=== PATIENT | female | born 1995 ===

== ENCOUNTER 2017-01-23 08:32 | Emergency (ER) | payer OTHER ==
[2017-01-23 08:39] VITALS: BMI 24.7
[2017-01-23 08:44] VITALS: TEMP 98.4; O2SAT 100
[2017-01-23] MEDS ORDERED: Sodium Chloride 0.9% 1,000 ML IV STA (08:47)
[2017-01-23] MEDS ORDERED: Alum-Mag Hydrox-Simethicone Susp (30 mL) PO STA (08:48)
--- NOTE | 2017-01-23 08:51 | ED PDOC ---
Arrival/HPI - General Chief Complaint: Abdominal Pain Time Seen by Provider: 01/23/17 08:41 Historian: Patient - History of Present Illness Narrative History of Present Illness (Text): 01/23/17 08:45 A 21 year old female, whose past medical history includes gastritis on protonix , presents to the emergency department for epigastric abdominal pain with nausea and vomiting. The patient states this morning when she woke up she was light headed and drank some water, then proceeded with her normal morning routine and went to work. At work the patient states she threw up twice. The patient denies any fever, bloody stools, headaches, or any other complaints at this time. Time/Duration: 1-3 hours Symptom Onset: Sudden Symptom Course: Unchanged Quality: Aching, Pressure Activities at Onset: Light Context: Home, Work Past Medical History - Provider Review Nursing Documentation Reviewed: Yes - Past History Past History: No Previous - Infectious Disease Hx of Infectious Diseases: None - Tetanus Immunization Tetanus Immunization: Up to Date - Past Medical History Past Medical History: Unable to Obtain - Cardiac Hx Cardiac Disorders: No - Pulmonary Hx Respiratory Disorders: Yes Hx Asthma: Yes - Neurological Hx Neurological Disorder: No - HEENT Hx HEENT Disorder: No - Renal Hx Renal Disorder: No - Endocrine/Metabolic Hx Endocrine Disorders: No - Hematological/Oncological Hx Blood Disorders: No - Integumentary Hx Dermatological Disorder: No - Musculoskeletal/Rheumatological Hx Musculoskeletal Disorders: No Hx Falls: No - Gastrointestinal Hx Gastrointestinal Disorders: No - Genitourinary/Gynecological Hx Genitourinary Disorders: No - Psychiatric Hx Psychophysiologic Disorder: Yes Hx Anxiety: Yes Hx Panic Disorder: Yes Hx Substance Use: Yes (daily) - Past Surgical History Past Surgical History: Unable to Obtain - Surgical History Other/Comment: cyst removal - Anesthesia Hx Anesthesia: No Hx Anesthesia Reactions: No Hx Malignant Hyperthermia: No - Suicidal Assessment Feels Threatened In Home Enviroment: No Family/Social History - Physician Review Nursing Documentation Reviewed: Yes Family/Social History: No Known Family HX Smoking Status: Former Smoker Hx Alcohol Use: Yes Frequency of alcohol use: Socially Hx Substance Use: Yes (daily) Substance used: marijuana Hx Substance Use Treatment: No Allergies/Home Meds Allergies/Adverse Reactions: Allergies No Known Allergies Allergy (Verified 10/10/15 16:34) Home Medications: Home Meds Medication Instructions Recorded Confirmed Omeprazole 20 mg PO DAILY 01/23/17 01/23/17 Review of Systems - Physician Review All systems were reviewed & negative as marked: Yes - Review of Systems Constitutional: absent: Fevers Gastrointestinal: Abdominal Pain, Nausea, Vomiting. absent: Other (bloody stool ) Neurological: absent: Headache Physical Exam Vital Signs Reviewed: Yes Vital Signs Temp Pulse Resp BP Pulse Ox 01/23/17 11:10 92 H 16 102/60 100 01/23/17 08:38 98.4 F 95 H 18 98/66 L 100 Temperature: Afebrile Blood Pressure: Hypotensive Pulse: Tachycardic Respiratory Rate: Normal Appearance: Positive for: Well-Appearing, Non-Toxic, Comfortable Pain Distress: None Mental Status: Positive for: Alert and Oriented X 3 - Systems Exam Head: Present: Atraumatic, Normocephalic Pupils: Present: PERRL Extroacular Muscles: Present: EOMI Conjunctiva: Present: Normal Mouth: Present: Moist Mucous Membranes Neck: Present: Normal Range of Motion Respiratory/Chest: Present: Clear to Auscultation, Good Air Exchange. No: Respiratory Distress, Accessory Muscle Use Cardiovascular: Present: Regular Rate and Rhythm, Normal S1, S2. No: Murmurs Abdomen: Present: Tenderness (epigastric tenderness ), Normal Bowel Sounds. No : Distention, Peritoneal Signs Back: Present: Normal Inspection Upper Extremity: Present: Normal Inspection. No: Cyanosis, Edema Lower Extremity: Present: Normal Inspection. No: Edema Neurological: Present: GCS=15, CN II-XII Intact, Speech Normal Skin: Present: Warm, Dry, Normal Color. No: Rashes Psychiatric: Present: Alert, Oriented x 3, Normal Insight, Normal Concentration Medical Decision Making ED Course and Treatment: 01/23/17 08:52 Impression: A 21 year old with epigastric tenderness. Differential Diagnosis included but are not limited to: ro gastrits, pancreatis , pud. Plan: -- Labs -- Maalox plus, Zofran, Protonix, IV fluids -- Urinalysis -- Reassess and disposition Progress Notes: 01/23/17 09:46 Upon revaluation the patient states she is feeling better and she later notes that she had minimal blood tinged emisis from previous. She refuses a rectal exam and states she wants to go home. suspect jenny dominguez, no gross hememeis as per pt, bun/cr normal, h/h stable. refuses rectal. pt states prefers to go home and return with worsening 01/23/17 17:14 - Lab Interpretations Lab Results: 01/23/17 09:00 01/23/17 09:00 Lab Results 01/23/17 10:09: Urine Color Yellow, Urine Appearance Clear, Urine pH 8.0, Ur Specific [place] 1.015, Urine Protein Trace H, Urine Glucose (UA) Negative, Urine Ketones Negative, Urine Blood Negative, Urine Nitrate Negative, Urine Bilirubin Negative, Urine Urobilinogen 0.2, Ur Leukocyte Esterase Negative, Urine RBC Negative, Urine WBC 0 - 2, Ur Epithelial Cells 6 - 8, Urine Bacteria Trace, Urine HCG, Qual Negative 01/23/17 09:00: Sodium 146, Potassium 4.5, Chloride 108 H, Carbon Dioxide 27, Anion Gap 15, BUN 12, Creatinine 0.8, Est GFR ( Amer) > 60, Est GFR (Non- Af Amer) > 60, Random Glucose 96, Calcium 9.4, Total Bilirubin 0.4, AST 30, ALT 19, Alkaline Phosphatase 36 L, Total Protein 8.0, Albumin 4.7, Globulin 3.3, Albumin/Globulin Ratio 1.4, Lipase 41 01/23/17 09:00: PT 12.4, INR 1.12 H, APTT 31.0 01/23/17 09:00: WBC 7.8, RBC 4.37, Hgb 13.5, Hct 40.7, MCV 93.1, MCH 30.9, MCHC 33.2, RDW 12.5, Plt Count 338, MPV 9.1, Gran % 69.1 H, Lymph % (Auto) 23.1, Yancey % (Auto) 5.3, Eos % (Auto) 2.2, Baso % (Auto) 0.3, Gran # 5.40, Lymph # 1.8 , Yancey # 0.4, Eos # 0.2, Baso # 0.02 - Medication Orders Current Medication Orders: Discontinued Medications Al Hydrox/Mg Hydrox/Simethicone (Maalox Plus 30 Ml) 30 ml PO STAT STA Stop: 01/23/17 08:49 Last Admin: 01/23/17 09:07 Dose: 30 ml Sodium Chloride (Sodium Chloride 0.9%) 1,000 mls @ 1,000 mls/hr IV .Q1H STA Stop: 01/23/17 09:46 Last Admin: 01/23/17 09:06 Dose: 1,000 mls/hr eMAR Start Stop Document 01/23/17 09:06 CNR (Rec: 01/23/17 09:07 CNR [id number]) Intravenous Solution Start Date 01/23/17 Start Time 09:05 End Date 01/23/17 End time 10:36 Total Infusion Time 91 Ondansetron HCl (Zofran Inj) 4 mg IVP STAT STA Stop: 01/23/17 08:49 Last Admin: 01/23/17 09:06 Dose: 4 mg IVP Administration Document 01/23/17 09:06 CNR (Rec: 01/23/17 09:06 CNR [id number]) Charges for Administration # of IVP Administrations 1 Pantoprazole Sodium (Protonix Inj) 40 mg IVP STAT STA Stop: 01/23/17 08:48 Last Admin: 01/23/17 10:11 Dose: 40 mg IVP Administration Document 01/23/17 10:11 CNR (Rec: 01/23/17 10:12 CNR [id number]) Charges for Administration # of IVP Administrations 1 - Scribe Statement The provider has reviewed the documentation as recorded by the Bianca Tong Provider Scribe Attestation: All medical record entries made by the Scribe were at my direction and personally dictated by me. I have reviewed the chart and agree that the record accurately reflects my personal performance of the history, physical exam, medical decision making, and the department course for this patient. I have also personally directed, reviewed, and agree with the discharge instructions and disposition. Disposition/Present on Arrival - Present on Arrival Any Indicators Present on Arrival: No History of DVT/PE: No History of Uncontrolled Diabetes: No Urinary Catheter: No History of Decub. Ulcer: No History Surgical Site Infection Following: None - Disposition Have Diagnosis and Disposition been Completed?: Yes Diagnosis: Abdominal pain Disposition: HOME/ ROUTINE Disposition Time: 05:00 Condition: STABLE Discharge Instructions (ExitCare): Acute Abdominal Pain (ED) Additional Instructions: return to er with worsening symptoms or concerns. Prescriptions: Famotidine [Pepcid] 20 mg PO DAILY #20 tab Referrals: Luke,Dhanasekar, MD [Staff Provider] - Follow up with primary Porfirio Butler MD [Medical Doctor] - Follow up with primary Forms: [employer] Connect (Latvian), WORK NOTE
[2017-01-23 09:13] LABS: BASO # 0.02 K/mm3 (0.0-2.0); BASO % 0.3 % (0.0-3.0); EOS # 0.2 (0.0-0.7); EOS % 2.2 % (1.5-5.0); GRAN # 5.4 (1.4-6.5); GRAN % 69.1 % (50.0-68.0); HEMATOCRIT 40.7 % (36.0-48.0); LYMPH # 1.8 (1.2-3.4); LYMPH % 23.1 % (22.0-35.0); MEAN CELL VOLUME 93.1 fl (80.0-105.0); MEAN CORPUSCULAR HEMOGLOBIN 30.9 pg (25.0-35.0); MEAN CORPUSCULAR HGB CONC 33.2 g/dl (31.0-37.0); MEAN PLATELET VOLUME 9.1 fl (7.0-11.0); MONO # 0.4 (0.1-0.6); MONO % 5.3 % (1.0-6.0); RED CELL DISTRIBUTION WIDTH 12.5 % (11.5-14.5); WHITE BLOOD COUNT 7.8 10^3/ul (4.5-11.0)
[2017-01-23 09:27] LABS: INR 1.12 (0.93-1.08)
[2017-01-23 09:28] LABS: ALB/GLOB RATIO 1.4 (1.1-1.8); ALKALINE PHOSPHATASE 36 U/L (38-126); ALT/SGPT 19 U/L (7-56); AST/SGOT 30 U/L (14-36); BILIRUBIN,TOTAL 0.4 mg/dL (0.2-1.3); BLOOD UREA NITROGEN 12 mg/dL (7-21); CALCIUM 9.4 mg/dL (8.4-10.5); CARBON DIOXIDE 27 mmol/L (21-33); CHLORIDE 108 mmol/L (98-107); GFR AFRICAN-AMERICAN > 60; GLUCOSE,RANDOM 96 mg/dL (70-110); LIPASE 41 U/L (23-300); POTASSIUM 4.5 mmol/L (3.6-5.0); SODIUM 146 mmol/L (132-148)
[2017-01-23 10:34] LABS: URINE BILIRUBIN NEGATIVE (NEGATIVE); URINE BLOOD NEGATIVE (NEGATIVE); URINE GLUCOSE (UA) NEGATIVE (NEGATIVE); URINE KETONE NEGATIVE (NEGATIVE); URINE LEUKOCYTE ESTERASE NEGATIVE Leu/uL (NEGATIVE); URINE PROTEIN TRACE mg/dL (<30 mg/dL); URINE UROBILINOGEN 0.2 E.U./dL (<1 E.U./dL)
[2017-01-23 10:46] LABS: URINE APPEARANCE CLEAR (CLEAR); URINE COLOR YELLOW (YELLOW)
[2017-01-23 10:57] LABS: URINE BACTERIA TRACE (NEG); URINE RBC NEGATIVE /hpf (0-2); URINE WBC 0 - 2 /hpf (0-6)
[2017-01-23 11:15] VITALS: BP 102/60; PULSE 92; RESP 16
== END 2017-01-23 11:14 | disposition home or self-care (01) ==
LOC: ED 08:32
DX: R10.13 Epigastric pain (principal); Z87.891 Personal history of nicotine dependence
CPT/HCPCS: 80053; 81001; 83690; 84703; 85025; 85610; 85730; 96361; 96374; 96375; 99284; C9113; J2405; J7040

== ENCOUNTER 2017-07-27 05:09 | Emergency (ER) | payer SELFPAY ==
[2017-07-27 05:20] VITALS: BMI 23.0
[2017-07-27 05:28] VITALS: RESP 18; TEMP 97.9
[2017-07-27] MEDS ORDERED: Oxymetazoline 0.05% Nasal Spray (30 ml) NS STA (05:32)
--- NOTE | 2017-07-27 05:36 | ED PDOC ---
Arrival/HPI - General Chief Complaint: Trauma Time Seen by Provider: 07/27/17 05:14 Historian: Patient - History of Present Illness Narrative History of Present Illness (Text): 07/27/17 05:32 A 22 year old female, with no significant past medical history, presents to the emergency department for further evaluation after striking her nose against a car. The patient notes that she accidentally struck the bridge of her nose against a car window. She states that the trauma was mild and she experienced subsequent epistaxis which has since resolved. Currently, she denies any pain or other injury. She denies fevers, chills, dizziness, headache, shortness of or chest pain, neck pain, back pain, nausea, vomiting, diarrhea, abdominal pain , or any other complaint. PMD: Dr. Zhang Time/Duration: Prior to Arrival Symptom Onset: Sudden Symptom Course: Unchanged Activities at Onset: Rest, Light Context: Home Past Medical History - Provider Review Nursing Documentation Reviewed: Yes - Past History Past History: No Previous - Infectious Disease Hx of Infectious Diseases: None - Tetanus Immunization Tetanus Immunization: Up to Date - Past Medical History Past Medical History: Unable to Obtain - Cardiac Hx Cardiac Disorders: No - Pulmonary Hx Respiratory Disorders: Yes Hx Asthma: Yes - Neurological Hx Neurological Disorder: No - HEENT Hx HEENT Disorder: No - Renal Hx Renal Disorder: No - Endocrine/Metabolic Hx Endocrine Disorders: No - Hematological/Oncological Hx Blood Disorders: No - Integumentary Hx Dermatological Disorder: No - Musculoskeletal/Rheumatological Hx Musculoskeletal Disorders: No Hx Falls: No - Gastrointestinal Hx Gastrointestinal Disorders: No - Genitourinary/Gynecological Hx Genitourinary Disorders: No - Psychiatric Hx Psychophysiologic Disorder: Yes Hx Anxiety: Yes Hx Panic Disorder: Yes Hx Substance Use: Yes (daily) - Past Surgical History Past Surgical History: Unable to Obtain - Surgical History Other/Comment: cyst removal - Anesthesia Hx Anesthesia: No Hx Anesthesia Reactions: No Hx Malignant Hyperthermia: No - Suicidal Assessment Feels Threatened In Home Enviroment: No Family/Social History - Physician Review Nursing Documentation Reviewed: Yes Family/Social History: No Known Family HX Smoking Status: Former Smoker Hx Alcohol Use: Yes Frequency of alcohol use: Socially Hx Substance Use: Yes (daily) Substance used: marijuana Hx Substance Use Treatment: No Allergies/Home Meds Allergies/Adverse Reactions: Allergies No Known Allergies Allergy (Verified 10/10/15 16:34) Home Medications: Home Meds Medication Instructions Recorded Confirmed Omeprazole 20 mg PO DAILY 01/23/17 01/23/17 Review of Systems - Physician Review All systems were reviewed & negative as marked: Yes - Review of Systems Constitutional: absent: Fevers, Night Sweats ENT: Epistaxis, Other (Struck nose against car window.). absent: Sore Throat Respiratory: absent: SOB, Cough Cardiovascular: absent: Chest Pain Gastrointestinal: absent: Abdominal Pain, Diarrhea, Nausea, Vomiting Musculoskeletal: absent: Back Pain, Neck Pain Neurological: absent: Headache, Dizziness Physical Exam Vital Signs Reviewed: Yes Vital Signs Temp Pulse Resp BP Pulse Ox 07/27/17 05:45 98 H 18 115/72 100 07/27/17 05:25 97.9 F 107 H 18 118/67 99 Temperature: Afebrile Blood Pressure: Normal Pulse: Tachycardic Respiratory Rate: Normal Appearance: Positive for: Well-Appearing, Non-Toxic, Comfortable Pain Distress: None Mental Status: Positive for: Alert and Oriented X 3 - Systems Exam Head: Present: Atraumatic, Normocephalic Pupils: Present: PERRL Extroacular Muscles: Present: EOMI Conjunctiva: Present: Normal Mouth: Present: Moist Mucous Membranes Nose (External): Present: Other (Mild swelling to the bridge of nose. ) Neck: Present: Normal Range of Motion Respiratory/Chest: Present: Clear to Auscultation, Good Air Exchange. No: Respiratory Distress, Accessory Muscle Use Cardiovascular: Present: Regular Rate and Rhythm, Normal S1, S2. No: Murmurs Abdomen: No: Tenderness, Distention, Peritoneal Signs Back: Present: Normal Inspection Upper Extremity: Present: Normal Inspection. No: Cyanosis, Edema Lower Extremity: Present: Normal Inspection. No: Edema Neurological: Present: GCS=15, CN II-XII Intact, Speech Normal Skin: Present: Warm, Dry, Normal Color. No: Rashes Psychiatric: Present: Alert, Oriented x 3, Normal Insight, Normal Concentration Medical Decision Making ED Course and Treatment: 07/27/17 05:37 Impression: A 22 year old female presents to the emergency department for further evaluation after striking her nose against a car window and experiencing epistaxis. Plan: -- Afrin -- Reassess and disposition Progress Notes: 07/27/17 20:06 no epistaxis in emergency room. mild ttp, doubt nasal fracture, however pt will need ent follow up. no signficant trauma for head ct. - Medication Orders Current Medication Orders: Discontinued Medications Oxymetazoline HCl (Afrin 0.05%) 1 ml NS STAT STA Stop: 07/27/17 05:33 Last Admin: 07/27/17 05:40 Dose: 1 ml - Scribe Statement The provider has reviewed the documentation as recorded by the Scribe Saadia Swartz Provider Scribe Attestation: All medical record entries made by the Scribe were at my direction and personally dictated by me. I have reviewed the chart and agree that the record accurately reflects my personal performance of the history, physical exam, medical decision making, and the department course for this patient. I have also personally directed, reviewed, and agree with the discharge instructions and disposition. Disposition/Present on Arrival - Present on Arrival Any Indicators Present on Arrival: No History of DVT/PE: No History of Uncontrolled Diabetes: No Urinary Catheter: No History of Decub. Ulcer: No History Surgical Site Infection Following: None - Disposition Have Diagnosis and Disposition been Completed?: Yes Diagnosis: Epistaxis Disposition: HOME/ ROUTINE Disposition Time: 08:00 Condition: STABLE Discharge Instructions (ExitCare): Nosebleeds, Nose Fracture (DC) Additional Instructions: please follow up with your doctor/specialist. return to er with worsening symptosm or concerns. Referrals: Angel Le DO [Doctor Osteopathy] - Follow up with primary Forms: [employer] (Welsh)
[2017-07-27 06:01] VITALS: BP 115/72; PULSE 98; O2SAT 100
== END 2017-07-27 05:45 | disposition home or self-care (01) ==
LOC: ED 05:09
DX: R04.0 Epistaxis (principal); Z87.891 Personal history of nicotine dependence

== ENCOUNTER 2017-09-25 09:33 | Emergency (ER) | payer MEDICAID, OTHER ==
[2017-09-25 10:02] VITALS: BMI 25.7
[2017-09-25 10:06] VITALS: TEMP 98
--- NOTE | 2017-09-25 10:33 | ED PDOC ---
Arrival/HPI - General Chief Complaint: Abdominal Pain Time Seen by Provider: 09/25/17 10:08 Historian: Patient - History of Present Illness Narrative History of Present Illness (Text): 22 y/o F w/ h/o ovarian cyst(left)presenting with persistent left sided abdominal pain. She reports the pain beginning last night after she engaged in coitus and noted vaginal spotting several hours later. She describes the pain as radiating to the lower back that is 10/10 in severity. She reports attempting to self medicate with Gabapentin with no resolution in symptoms. The patient reports having similar episodes in the past when approaching her menses , but reports this episode being more intense than the others. She admits to no contraceptive use or use of barrier methods, but denies ever having being . Her LMP 09/09/17 and reports a history of Chlamydia 3 years ago that was treated. Time/Duration: 24 hours Severity Level: 8 Activities at Onset: Other (Coitus) Modifying Factors (Text): Motrin Context: Other (lower back pain) Past Medical History - Provider Review Nursing Documentation Reviewed: Yes - Past History Past History: No Previous - Infectious Disease Hx of Infectious Diseases: None - Tetanus Immunization Tetanus Immunization: Up to Date - Reproductive Menopause: No Currently : No - Past Medical History Past Medical History: Unable to Obtain - Cardiac Hx Cardiac Disorders: No - Pulmonary Hx Respiratory Disorders: Yes Hx Asthma: Yes - Neurological Hx Neurological Disorder: No - HEENT Hx HEENT Disorder: No - Renal Hx Renal Disorder: No - Endocrine/Metabolic Hx Endocrine Disorders: No - Hematological/Oncological Hx Blood Disorders: No - Integumentary Hx Dermatological Disorder: No - Musculoskeletal/Rheumatological Hx Musculoskeletal Disorders: No Hx Falls: No - Gastrointestinal Hx Gastrointestinal Disorders: No - Genitourinary/Gynecological Hx Genitourinary Disorders: Yes Other/Comment: ovarian cyst, Chylamydia - Psychiatric Hx Psychophysiologic Disorder: Yes Hx Anxiety: Yes Hx Panic Disorder: Yes Hx Substance Use: Yes (daily) - Past Surgical History Past Surgical History: Unable to Obtain - Surgical History Other/Comment: cyst removal - Anesthesia Hx Anesthesia: Yes Hx Anesthesia Reactions: No Hx Malignant Hyperthermia: No - Suicidal Assessment Feels Threatened In Home Enviroment: No Family/Social History - Physician Review Nursing Documentation Reviewed: Yes Family/Social History: No Known Family HX Smoking Status: Light Smoker < 10 Cigarettes Daily Hx Alcohol Use: Yes Frequency of alcohol use: Socially Hx Substance Use: Yes (daily) Substance used: marijuana Hx Substance Use Treatment: No Allergies/Home Meds Allergies/Adverse Reactions: Allergies No Known Allergies Allergy (Verified 10/10/15 16:34) Home Medications: Home Meds Medication Instructions Recorded Confirmed No Known Home Med 09/25/17 09/25/17 Review of Systems - Review of Systems Constitutional: absent: Fevers, Night Sweats Respiratory: absent: SOB, Cough, Sputum Cardiovascular: absent: Chest Pain, Palpitations, Edema Gastrointestinal: Abdominal Pain. absent: Constipation, Nausea, Vomiting Genitourinary Female: Vaginal Bleeding. absent: Dysuria, Frequency, Hematuria Musculoskeletal: Back Pain Skin: absent: Rash, Pruritis, Skin Lesions Neurological: absent: Headache, Dizziness, Focal Weakness Hemo/Lymphatic: absent: Easy Bleeding Psychiatric: absent: Anxiety, Depression Physical Exam Vital Signs Reviewed: Yes Vital Signs Temp Pulse Resp BP Pulse Ox 09/25/17 14:21 100 09/25/17 14:20 74 17 117/75 100 09/25/17 13:00 82 17 115/70 99 09/25/17 10:05 98.0 F 84 18 112/66 100 Mental Status: Positive for: Alert and Oriented X 3 - Systems Exam Head: Present: Atraumatic, Normocephalic Mouth: Present: Moist Mucous Membranes Respiratory/Chest: Present: Clear to Auscultation, Good Air Exchange. No: Respiratory Distress, Wheezes Cardiovascular: Present: Regular Rate and Rhythm, Normal S1, S2 Abdomen: Present: Tenderness, Normal Bowel Sounds. No: Distention, Peritoneal Signs Genitourinary/Pelvic Exam: Present: Normal External Genitalia, Vaginal Bleeding , Adenexal Tenderness, Cervical os Closed. No: Vaginal Discharge, Vaginal Lesions, Adenexal Mass, Cervical Motion Tendernes, Odor Back: Present: CVA Tenderness Neurological: Present: GCS=15, CN II-XII Intact, Speech Normal Skin: Present: Warm, Dry, Normal Color Psychiatric: Present: Alert, Oriented x 3, Normal Insight, Normal Concentration Medical Decision Making ED Course and Treatment: Impression 22 y/o F w/ h/o ovarian cyst presenting w/ left sided abdominal pain Given the patient's history of ovarian cysts and reccurrence of symptoms close to onset of monthly menses, I believe the patient's symptoms are due to an ovarian cyst. Based on her lack of contraceptive use/ barrier method, must be ruled out. She will have her UA evaluated for possible UTI. She will have endovaginal ultrasound performed to determine size of ovarian cyst. Differential Includes but is not limited to: Ectopic Ovarian Cyst Kidney Stone PID Plan UA Urine Toradol Endovaginal ultrasound Progress Note 09/25/1129 UA reviewed showing blood in urine with no bacteria. Urine negative. 09/25/17 13:48 US reveals left adnexal complex cyst with no free pelvic fluid. Patient informed of updated findings and will follow up in clinic. Discussion on the importance of safe sex practices given to patient and partner. Return protocol explained in the setting of worsening symptoms. She is ambulatory and stable for discharge. - Lab Interpretations Lab Results: Lab Results 09/25/17 10:20: Urine Color Yellow, Urine Appearance Clear, Urine pH 6.0, Ur Specific [place] 1.020, Urine Protein Negative, Urine Glucose (UA) Negative, Urine Ketones Negative, Urine Blood Moderate H, Urine Nitrate Negative, Urine Bilirubin Negative, Urine Urobilinogen 0.2, Ur Leukocyte Esterase Negative, Urine RBC 10 - 15, Urine WBC 0 - 2, Ur Epithelial Cells 6 - 8, Urine Bacteria Many, Urine HCG, Qual Negative - RAD Interpretation Radiology Orders: 09/25/17 11:21 TRANSVAGINAL [US] Stat - Medication Orders Current Medication Orders: Discontinued Medications Ketorolac Tromethamine (Toradol) 60 mg IM STAT STA Stop: 09/25/17 11:21 Last Admin: 09/25/17 14:18 Dose: 60 mg MAR Pain Assessment Document 09/25/17 14:18 SF (Rec: 09/25/17 14:18 [id number]) Pain Reassessment Is this a pain reassessment? Yes Sleep Is patient sleeping during reassessment? No Presence of Pain Presence of Pain Yes Pain Scale Used Pain Scale Used Numeric IM Administration Charges Document 09/25/17 14:18 SF (Rec: 09/25/17 14:18 SF [facility] [email or web address]) Injection Site MAR Injection Site Left Deltoid Charges for Administration # of IM Administrations 1 Disposition/Present on Arrival - Present on Arrival Any Indicators Present on Arrival: No History of DVT/PE: No History of Uncontrolled Diabetes: No Urinary Catheter: No History of Decub. Ulcer: No History Surgical Site Infection Following: None - Disposition Have Diagnosis and Disposition been Completed?: Yes Diagnosis: Hemorrhagic cyst of left ovary Disposition: HOME/ ROUTINE Disposition Time: 13:51 Patient Plan: Discharge Condition: GOOD Discharge Instructions (ExitCare): Ovarian Cysts Referrals: Mars Zhang MD [Primary Care Provider] - Follow up with primary Forms: [employer] Connect (Ecuadorean), WORK NOTE
[2017-09-25 10:52] LABS: URINE APPEARANCE CLEAR (CLEAR); URINE BILIRUBIN NEGATIVE (NEGATIVE); URINE BLOOD MODERATE (NEGATIVE); URINE COLOR YELLOW (YELLOW); URINE GLUCOSE (UA) NEGATIVE (NEGATIVE); URINE LEUKOCYTE ESTERASE NEGATIVE Leu/uL (NEGATIVE); URINE PROTEIN NEGATIVE mg/dL (<30 mg/dL); URINE UROBILINOGEN 0.2 E.U./dL (<1 E.U./dL)
[2017-09-25 10:53] LABS: HCG,QUALITATIVE URINE NEGATIVE (NEGATIVE)
[2017-09-25 10:55] LABS: URINE WBC 0 - 2 /hpf (0-6)
[2017-09-25 10:56] LABS: URINE BACTERIA MANY (NEG)
--- NOTE | 2017-09-25 13:20 | US ---
Date of service: 09/25/2017 HISTORY: h/o ovarian cysts COMPARISON: 03/03/2016. TECHNIQUE: Transvaginal pelvic ultrasound was performed. FINDINGS: UTERUS: Measures 7.3 x 4.1 x 5.3 cm. Retroverted, normal in size and appearance. No fibroid or other mass lesion seen. ENDOMETRIUM: Measures 10 mm in diameter. Central endometrial echo complex is normal in appearance the CERVIX: No cervical abnormality identified. RIGHT OVARY: Measures 5.0 x 1.7 x 3.3 cm. No solid mass. Normal flow. LEFT OVARY: Measures 4.9 x 2.2 x 3.8 cm. No solid mass. Normal flow. There is a 1.4 x 1.0 x 1.3 cm complicated lash hemorrhagic cyst. FREE FLUID: No significant free fluid noted. OTHER FINDINGS: None. IMPRESSION: Unremarkable pelvic ultrasound. 1.4 cm complicated/hemorrhagic cyst in the left ovary.
[2017-09-25 14:20] VITALS: RESP 17
[2017-09-25 14:21] VITALS: BP 117/75; PULSE 74; O2SAT 100
== END 2017-09-25 14:21 | disposition home or self-care (01) ==
LOC: ED 09:33
DX: N83.202 Unspecified ovarian cyst, left side (principal)
CPT/HCPCS: 76830; 81001; 84703; 96372; 99285; J1885